=== PATIENT | female | born 1980 | race Caucasian/White ===

== ENCOUNTER 2016-09-14 16:24 | Outpatient (CLI) | payer MEDICAID ==
[~2016-09-14] VITALS: Ht 162.6 cm; Wt 70.5 kg
[~2016-09-14 16:24] MED LIST: CEPH500T PO; CYCL-265 PO; HYDR-3811 PO; NAPR550T PO; NO HOME MEDICATIONS; PRM25T PO; SULF1TAB35 PO
[2016-09-14 16:40] VITALS: BP 116/57
[2016-09-14 17:00] VITALS: BP 116/57
[2016-09-14 17:20] VITALS: BP 118/57
[2016-09-14 17:21] LABS: BILIRUBIN,URINE Negative (Negative); CLARITY,URINE Slightly Cloudy; COLOR,URINE Yellow; GLUCOSE, URINE (UA) Negative (Negative); LEUKOCYTE ESTERASE ,URINE 1+ (Negative); PH,URINE 7.5 (5.0 - 8.0); UROBILINOGEN,URINE 0.2 mg/dL (0.2-1.0)
[2016-09-14 17:22] LABS: RBC,URINE None Seen /HPF; URINE CENTRIFUGED VOLUME 12 mL
[2016-09-14 17:30] VITALS: BP 118/57
== END 2016-09-14 17:30 | disposition home or self-care (01) ==
LOC: OBGOP 16:24 → OB 16:24 → OBGOP 17:30
PROVIDERS: ATTEND Obstetrics & Gynecology
DX: O36.8130 Decreased fetal movements, third trimester, not applicable or unspecified (principal); Z3A.28 28 weeks gestation of pregnancy
CPT/HCPCS: 81003; 81015; 87088; G0463; 99201

== ENCOUNTER 2016-09-19 17:57 | Emergency (ER) | payer MEDICAID ==
[~2016-09-19] VITALS: Ht 162.6 cm; Wt 71.0 kg
--- OUTSIDE RECORDS SUMMARY | 2016-09-19 18:02 | XMS REPORT | Continuity of Care Document ---
Author Author [facility] Organization [facility] Address Unknown Phone Unavailable Care Team Providers Care Stamp Collector Name Role Phone Gurdon, Rj Cassidy MD PP [phone] Insurance Providers Payer Name Policy Number Subscriber Name Relationship [facility] [id number] Arleen Reese 20 Self / Same As Patient Advance Directives Directive Response Recorded Date Advanced Directives Not applicable 10:51am Problems Medical Problem Onset Date Acute low back pain 05/24/13 Spontaneous 06/14/13 Allergies, Adverse Reactions, Alerts Allergen Type Severity Reaction Last Updated No Known Drug Allergies 05/24/13 Medications Medication Dose Units Route Sig Qty Days Promethazine Hcl (Phenergan Po) 25 Mg PO q6 hrs as needed. 10 Hydrocodone Bit/Acetaminophen ([place] 7.5-325 Tablet) 1 Each PO q6 hrs for pain PRN 10 Cyclobenzaprine Hcl (Flexeril) 1 Tab PO TID PRN 15 Naproxen Sodium (Anaprox Ds) 550 Mg PO Q8H PRN 15 Response Recorded Date/Time Status not known Unknown Results No Known Relevant Diagnostic Tests, Laboratory Data and/or Discharge Summary. Procedures Procedure Code Date EMERGENCY DEPT VISIT 40668 05/24/13 THER/PROPH/DIAG INJ SC/IM 15508 05/24/13 [id number] 05/24/13 J2360 05/24/13 Encounters Encounter Location Date/Time Departed Emergency Room [facility] 06/14/13 10:48am
--- NOTE | 2016-09-19 18:18 | NUR ---
OB nurse at bedside with EFM. Tracing sketchy due to maternal and movement. FHT noted in the 150-170s. Nurse remains at bedside adjusting monitor till 1850 when order to DC EFM are given by ER doc.
[2016-09-19] MEDS: morphine INJ 4 MG/ML 1 ML SYRINGE IV PRN ×2 (18:19→19:02)
[2016-09-19 18:24] LABS: MEAN CORPUSCULAR HGB CONC 34.3 g/dL (31.0-37.0); MEAN CORPUSCULAR VOLUME 91 FL (80-100); MEAN PLATELET VOLUME 9.8 FL (6.0-9.5); PLATELET COUNT 313 10^3uL (150-450); WHITE BLOOD COUNT 10.95 10^3uL (4.0-11.0)
[2016-09-19 18:29] LABS: CLARITY,URINE Clear; GLUCOSE, URINE (UA) Negative (Negative); LEUKOCYTE ESTERASE ,URINE Trace (Negative); UROBILINOGEN,URINE 0.2 mg/dL (0.2-1.0)
[2016-09-19 18:31] LABS: BILIRUBIN,URINE 1+ (Negative); COLOR,URINE Dark Yellow
[2016-09-19 18:33] LABS: ALBUMIN 3.7 g/dL (3.4-5.0); ANION GAP 17.2 MEQ/L (3-15); CALCULATED IONIZED CALCIUM 3.8 mg/dL (3.8-4.6); TOTAL PROTEIN 7.3 g/dL (6.4-8.5)
[2016-09-19 18:35] LABS: BAND NEUTROPHILS % 0 % (0-6); LYMPHOCYTES # 2.3 #; MONOCYTES # 0.8 #; MONOCYTES % 8 % (3-11); SEGMENTED NEUTROPHILS % 69 % (51-67)
[2016-09-19] MEDS ORDERED: ONDANSETRON 2 MG/ML (Z0FRAN) 2 ML VIAL IV ONE (18:35)
[2016-09-19 18:36] LABS: EOSINOPHILS % 1 % (0-4); RBC MORPH NORMAL (NORMAL); TOTAL CELLS COUNTED 100
--- NOTE | 2016-09-19 18:36 | NUR ---
DR HADDAD TALKS W/[facility] PT. CL
--- NOTE | 2016-09-19 18:37 | NUR ---
DR HADDAD TALKS WITH DR ASENCIO RE PT. CL
[2016-09-19 18:40] LABS: URINE CENTRIFUGED VOLUME 12 mL
[2016-09-19 18:45] LABS: RBC,URINE 0-2 /HPF
[2016-09-19 18:46] LABS: AMPHETAMINE SCREEN, URINE Positive (Negative); CANNABINOID SCREEN, URINE Positive (Negative); METHAMPHETAMINE SCREEN URINE S POSITIVE (NEGATIVE); OPIATE SCREEN URINE Negative (Negative); PROPOXYPHENE STAT NEGATIVE (NEGATIVE)
[2016-09-19] MEDS ORDERED: morphine INJ 4 MG/ML 1 ML SYRINGE IV PRN (19:00)
[2016-09-19 19:58] VITALS: BP 146/71
== END 2016-09-19 19:55 | disposition short-term general hospital (02) ==
LOC: ED 17:59
DX: O26.892 Other specified pregnancy related conditions, second trimester (principal); K42.9 Umbilical hernia without obstruction or gangrene; O99.322 Drug use complicating pregnancy, second trimester; F15.10 Other stimulant abuse, uncomplicated; F12.10 Cannabis abuse, uncomplicated; O99.332 Smoking (tobacco) complicating pregnancy, second trimester; F17.210 Nicotine dependence, cigarettes, uncomplicated; Z3A.24 24 weeks gestation of pregnancy
CPT/HCPCS: 36415; 80053; 80307; 81003; 81015; 85007; 85027; 87088; 87210; 87491; 96361; 96374; 96375; 96376; 99283; J2270; J2405; J7030

== ENCOUNTER → 2016-09-19 | Outpatient (CLI) | payer MEDICAID | LOC: EMS 19:47 | DX: K42.9 Umbilical hernia without obstruction or gangrene (principal); Z3A.24 24 weeks gestation of pregnancy; F15.90 Other stimulant use, unspecified, uncomplicated ==